=== PATIENT | male | born 1990 | race Caucasian/White ===

== ENCOUNTER 2021-03-22 11:15 | Emergency (ER) | payer SELFPAY ==
[~2021-03-22] VITALS: Ht 177.8 cm; Wt 77.1 kg
[2021-03-22 11:28] VITALS: BP 141/103
--- NOTE | 2021-03-22 11:35 | NUR ---
PT TO WAIT IN LOBBY FOR PHYSICAN EXAM
--- NOTE | 2021-03-22 11:55 | NUR ---
PATIENT LEFT WITHOUT BEING SEEN BY DR. LUX. NO FURTHER CARE PROVIDED FOR PATIENT.
== END 2021-03-22 11:55 | disposition left against medical advice (07) ==
LOC: MED 11:15
DX: F10.129 Alcohol abuse with intoxication, unspecified (principal); Z53.21 Procedure and treatment not carried out due to patient leaving prior to being seen by health care provider; Y90.9 Presence of alcohol in blood, level not specified